=== PATIENT | female | born 1960 | race Caucasian/White ===

== ENCOUNTER 2016-03-30 03:21 | Emergency (ER) | payer OTHER ==
[2016-03-30] MEDS ORDERED: SULFAMETHOXAZOLE 800 MG/TRIMETHOPRIM 160 MG TABLET ONE (03:56)
[2016-03-30 03:57] LABS: URINE BILIRUBIN NEGATIVE (NEGATIVE); URINE BLOOD 4+ (NEGATIVE); URINE GLUCOSE (UA) NEGATIVE (NEGATIVE); URINE LEUKOCYTE ESTERASE 2+ (NEGATIVE); URINE NITRITE NEGATIVE (NEGATIVE); URINE PROTEIN 2+ (NEGATIVE); URINE UROBILINOGEN NORMAL (0-1 mg/dl)
[2016-03-30 04:02] LABS: URINE APPEARANCE TURBID; URINE COLOR YELLOW
[2016-03-30 04:04] LABS: URINE BACTERIA 2+; URINE RBC >100 /hpf; URINE WBC >100 /hpf
== END 2016-03-30 04:35 | disposition home or self-care (01) ==
LOC: ED 03:21
DX: N39.0 Urinary tract infection, site not specified (principal)
CPT/HCPCS: 87086; 81001; 99283 ×2; A9270

== ENCOUNTER 2016-04-13 21:02 | Emergency (ER) | payer OTHER ==
[2016-04-14] MEDS ORDERED: ALBUTEROL NEB 2.5 MG/3 ML VIAL.NEB NEB ONE (00:05)
[2016-04-14] MEDS ORDERED: KETOROLAC TROMETHAMINE 15 MG/ML VIAL ONE (00:07)
[2016-04-14] MEDS ORDERED: LACTATED RINGERS 1,000 ML ONE (00:08)
[2016-04-14 00:35] LABS: ABSOLUTE NEUTROPHIL COUNT 2.3 K/mm3 (1.8-7.7); BASO % 0.5 % (0.2-1.0); EOS # 0.1 (0.0-0.5); EOS % 2.8 % (0.9-2.9); HEMATOCRIT 39.6 % (37.0-47.0); IMM NEUT% 0.2 % (0-1); LYMPH # 1.3 (1.0-4.8); LYMPH % 29.5 % (15-45); MEAN CELL VOLUME 85.9 fl (81.0-99.0); MEAN CORPUSCULAR HEMOGLOBIN 28.2 pg (27.0-31.0); MEAN CORPUSCULAR HGB CONC 32.8 g/dl (33.0-37.0); MEAN PLATELET VOLUME 8.8 fl (7.4-10.4); MONO # 0.6 (0.0-0.8); PLATELET COUNT 188 K/mm3 (130-400); RED CELL DISTRIBUTION WIDTH 13.2 % (11.5-14.5)
[2016-04-14 00:53] LABS: ALB/GLOB RATIO 1.3 (>1.0); CALCIUM 9.1 mg/dL (8.6-10.3)
[2016-04-14 01:21] LABS: PH,URINE 6.5 (5.0-8.0); URINE APPEARANCE CLEAR; URINE BILIRUBIN NEGATIVE (NEGATIVE); URINE BLOOD TRACE (NEGATIVE); URINE COLOR YELLOW; URINE GLUCOSE (UA) NEGATIVE (NEGATIVE); URINE LEUKOCYTE ESTERASE NEGATIVE (NEGATIVE); URINE NITRITE NEGATIVE (NEGATIVE); URINE PROTEIN NEGATIVE (NEGATIVE); URINE UROBILINOGEN NORMAL (0-1 mg/dl)
[2016-04-14 01:26] LABS: URINE BACTERIA 0; URINE EPITHELIAL CELLS FEW /hpf; URINE RBC 0-1 /hpf; URINE WBC NEG /hpf
[2016-04-14] MEDS ORDERED: ACETAMINOPHEN 500 MG TABLET ONE (02:00)
== END 2016-04-14 02:59 | disposition home or self-care (01) ==
LOC: ED 21:02
DX: J11.1 Influenza due to unidentified influenza virus with other respiratory manifestations (principal)
CPT/HCPCS: 85025; 80053; 81001; 87804; 94640; 99283 ×2; 96374; 96361 ×2; J1885; A9270; J7120